=== PATIENT | male | born 1950 | race Caucasian/White ===

== ENCOUNTER 2021-12-20 07:22 | Day surgery (SDC) | payer MEDICARE, OTHER, SELFPAY ==
[2021-12-13 08:43] VITALS: BMI 35.9
[2021-12-20 07:50] VITALS: BP 148/77; PULSE 62; RESP 18; TEMP 36.4; O2SAT 98; BMI 35.9
[2021-12-20 08:03] VITALS: BMI 35.9
[2021-12-20] MEDS: LACTATED RINGERS 1,000 ML 84 ML IV ×2 (08:08→10:51)
--- NOTE | 2021-12-20 09:17 | PM.HP.1 ---
History of Present Illness History of Present Illness Date Patient Seen: 12/20/21 Time Patient Seen: 09:17 Chief complaint: Recurrent RIH Narrative: Skip is here for his laparoscopic recurrent right inguinal hernia repair with mesh. Please see the office note from September for details. Patient History Medical History (Updated 12/13/21 @ 08:48 by Eleanor Velasco RN) BPH (benign prostatic hyperplasia) Former smoker Hernia HLD (hyperlipidemia) HTN (hypertension) Varicose veins of both legs with edema Surgical History (Updated 12/13/21 @ 08:46 by Eleanor Velasco RN) History of knee replacement Hx of right inguinal hernia repair Hx of ventral hernia repair Family & Social History Family History (Updated 10/11/21 @ 09:13 by Lopez Vitale RN) Father Hypertension Diabetes mellitus Cancer Mother Cancer Social History: household members spouse Tobacco & Substance use: Smoking Status Current every day smoker alcohol intake current alcohol intake frequency 0-2 drinks per day Substance Use Type marijuana Meds Home Medications and Allergies Home Medications Medication Instructions Recorded Confirmed Type lisinopril 10 mg tablet 10 mg PO DAILY 10/11/21 12/20/21 History Allergies Allergy/AdvReac Type Severity Reaction Status Date / Time No Known Drug Allergies Allergy Verified 12/20/21 08:01 Exam Vital Signs (past 8 hours): - 12/20/21 07:50 Temperature 97.5 F L Pulse Rate 62 Respiratory Rate 18 Blood Pressure 148/77 H Pulse Oximetry 98 Oxygen Delivery Method Room Air Oxygen Delivery Method Room Air Narrative Exam Narrative: Recurrent right inguinal hernia Assessment & Plan Assessment and plan (1) Recurrent right inguinal hernia: Status: Acute Plan Proceed with a laparoscopic right inguinal hernia repair with mesh. We will repair many left inguinal hernia if we see one. He believes he has a stitch popping through from his epigastric hernia repair. I will see if there is something that can be addressed once were in the operating room. Time Spent With Patient Critical Care time: I spent a total of [] minutes of critical care time on this patient's care today; this time is exclusive of procedural time.
[2021-12-20] MEDS: CEFAZOLIN 2 GM/100 ML PREMIX 100 ML IV (09:35)
--- NOTE | 2021-12-20 10:14 | SUR.OPER ---
Supine on padded OR bed and pink pad positioner, head on pillow and gel donut, arms padded and tucked at sides, legs uncrossed, safety belt at thigh, tape over blanket over lower legs .
[2021-12-20] MEDS: BUPIVACAINE 0.5% (PF) VIAL 30 ML INJ (10:22)
[2021-12-20] MEDS: EPINEPHrine 1 MG/ML 0.15 MG INJ (10:24)
--- NOTE | 2021-12-20 11:25 | PM.OP.1 ---
Operative Date/Time/Diagnoses Date of procedure: 12/20/21 Time of procedure: 11:25 Pre-op diagnosis: Recurrent right inguinal hernia Post-op diagnosis: same Procedure & Clinicians Procedure: Laparoscopic recurrent right inguinal hernia Same procedure as scheduled: Yes Surgeon: Renato Yoo Anesthesia Type: General Operative Notes Procedure in detail: The patient was given preoperative antibiotics. The patient was brought to the operating room, placed on the table in the supine position with the arms tucked and general anesthesia was induced. The abdomen was prepped and draped in the usual fashion. A time-out was performed. A 1 cm curvilinear infraumbilical incision was created and dissection was carried down to the base of the umbilical stalk. The umbilical stalk was grasped with a Keyona clamp to elevate the abdominal wall. The fascia was scored in the midline with cautery. A Peon clamp was used to arana the peritoneum. The Ronny port was placed and the abdomen was insufflated to 15 mmHg. The camera was inserted, there was no evidence of any injury from the entry. There was a indirect right inguinal hernia. 5 mm ports were placed under direct vision in the mid left and mid right abdomen. The patient was positioned in steep Trendelenburg. We created right peritoneal flap. The peritoneum was dissected off the cord structures. David's ligament was exposed. A a large right Bard mesh was brought in and placed over the defect with the medial edge against David's ligament. We then closed the peritoneal flap with a running 3-0 barbed suture. We took one last look around the abdomen and saw no other abnormalities. The suture was removed and accounted for. The 5 mm ports were removed under direct vision. The abdomen was desufflated. The Ronny port was removed. Additional local was injected into the fascia and the infraumbilical fascial incision was closed with 3 interrupted 0 Vicryl sutures. The skin incisions were closed with 4 Monocryl, Steri-Strips and Band-Aids. Post-operative Condition: stable Disposition: PACU
[2021-12-20 11:29] VITALS: BP 148/77; PULSE 62; RESP 18; TEMP 36.4; O2SAT 98
[2021-12-20 11:31] VITALS: BP 155/73; PULSE 71; RESP 20; O2SAT 94
[2021-12-20 11:36] VITALS: BP 150/76; PULSE 68; RESP 18; O2SAT 96
[2021-12-20 11:55] VITALS: BP 151/74; PULSE 68; RESP 20; TEMP 36.7; O2SAT 96
== END 2021-12-20 11:57 | disposition home or self-care (01) ==
PROVIDERS: Family Provider Family Medicine; PCP Nurse Practitioner Family; Referring Provider Surgery; Visit Provider Surgery
PROC: 0YQ54ZZ Repair Right Inguinal Region, Percutaneous Endoscopic Approach (ICD-10-PCS; CPT 49651; principal; 2021-12-20 09:15)
DX: K40.90 Unilateral inguinal hernia, without obstruction or gangrene, not specified as recurrent (principal); F17.210 Nicotine dependence, cigarettes, uncomplicated; I10 Essential (primary) hypertension; E66.9 Obesity, unspecified
CPT/HCPCS: 49651; J0171; J0690; J1100; J2405; J2704; J3010

== ENCOUNTER 2022-07-03 11:56 | Day surgery (SDC) | payer MEDICARE, OTHER, SELFPAY ==
[2022-06-29 10:40] VITALS: BMI 38.1
[2022-07-03 12:22] VITALS: BP 150/81; PULSE 77; RESP 16; TEMP 36.4; O2SAT 99; BMI 38.1
[2022-07-03] MEDS: LACTATED RINGERS 1,000 ML 42 ML IV ×2 (12:33→15:19)
--- NOTE | 2022-07-03 14:36 | PM.PREOP ---
Pre-operative Note COVID-19 COVID-19 status: Not tested Interval Note History & Physical reviewed/Exam performed by Physician: Yes Changes to H&P: No ASA Class (for procedural sedation): II
[2022-07-03] MEDS: CEFAZOLIN 2 GM/100 ML PREMIX 100 ML IV (14:50)
--- NOTE | 2022-07-03 15:08 | SUR.OPER ---
Supine on padded OR bed, head on pillow, arms secured on padded arm boards at <90 degrees abduction, legs uncrossed, safety belt at thigh, tape over blanket over lower legs. Pt positioned per direction and supervision of Dr Yoo.
[2022-07-03] MEDS: BUPIVACAINE 0.25% W/ EPI 30 ML VIAL INJ (15:13)
[2022-07-03 15:59] VITALS: BP 186/82; PULSE 77; RESP 18; TEMP 36.5; O2SAT 92
--- NOTE | 2022-07-03 16:03 | PM.OP.1 ---
Operative Date/Time/Diagnoses Date of procedure: 07/03/22 Time of procedure: 16:03 Pre-op diagnosis: Umbilical hernia Post-op diagnosis: same Procedure & Clinicians Procedure: Open umbilical hernia repair with mesh Same procedure as scheduled: Yes Surgeon: Renato Yoo Anesthesia Type: General Operative Notes Procedure in detail: Ancef was administered. The patient was brought to the operating room, placed on the table in the supine position and general endotracheal anesthesia was induced. The abdomen was prepped and draped in the usual fashion. A time-out was performed. A 6 cm curvilinear incision was made inferior to the umbilicus. The hernia sac was dissected free from the surrounding subcutaneous adipose tissue. The umbilical stalk was divided from the abdominal wall and sac was dissected off the umbilical stalk using a combination of cautery, sharp and blunt dissection. The hernia sac was dissected free from the fascial ring and allowed to drop back down into the abdomen. The fascia was then closed transversely with multiple interrupted 0 Ethibond sutures. The subcutaneous adipose tissue was cleared off of the anterior sheath circumferentially about 2 cm in each direction. A piece of polypropylene mesh was trimmed to fit over the fascial closure and secured with Tisseel. We excised a portion of the umbilical skin which had some scar tissue that some to the patient this was closed in layers using a running 3-0 Vicryl which was then used to tack the umbilical skin to the deep tissue. The skin was closed with multiple interrupted 3-0 Vicryl dermal sutures followed by a running 4 Monocryl subcuticular closure. Steri-Strips were applied and an abdominal binder was applied. EBL: 5 mL Post-operative Condition: stable Disposition: PACU
[2022-07-03 16:04] VITALS: BP 165/88; PULSE 83; RESP 16; O2SAT 93
[2022-07-03 16:11] VITALS: BP 157/91; PULSE 79; RESP 14; TEMP 36.3; O2SAT 93
[2022-07-03 16:16] VITALS: BP 159/82; PULSE 78; RESP 12; TEMP 36.6; O2SAT 97
[2022-07-03 16:35] VITALS: BP 159/81; PULSE 78; RESP 17; TEMP 36.6; O2SAT 96
== END 2022-07-03 16:47 | disposition home or self-care (01) ==
PROVIDERS: Family Provider Family Medicine; PCP Nurse Practitioner Family; Referring Provider Surgery; Visit Provider Surgery
PROC: (CPT 49593; principal; 2022-07-03 13:15)
DX: K42.9 Umbilical hernia without obstruction or gangrene (principal)
CPT/HCPCS: 49593; J0330; J0690; J1100; J2405; J2704; J3010

== ENCOUNTER → 2023-04-12 13:59 | Outpatient (CLI) | payer MEDICARE, OTHER, SELFPAY ==
--- NOTE | 2023-04-12 | DI.CT.S_ITS ---
PROCEDURE: CT LUNG LOW DOSE SCREENING INDICATIONS: FORMER SMOKER, SCREENING TECHNIQUE: Noncontrast 2.0-2.5 mm thick sections acquired from the pulmonary apices to the posterior costophrenic angles. 7 mm thick axial MIP, and 5 mm coronal and sagittal reformats were then acquired. For radiation dose reduction, the following was used: automated exposure control, adjustment of mA and/or kV according to patient size. COMPARISON: None. FINDINGS: Image quality: Diagnostic, given the low radiation dose technique. Lungs and pleura: No suspicious pulmonary nodules or mass lesions. No acute airspace opacities. Mediastinum: Heart size is normal. No pericardial effusion. No mediastinal adenopathy by size criteria. Thoracic aorta and central pulmonary arteries are normal in size. Scattered atheromatous calcifications are present within the aortic arch. Esophagus is normal in caliber. No hiatal hernia. Bones and chest wall: There is diffuse idiopathic skeletal hyperostosis (DISH) of the thoracic spine. No suspicious bony lesions. No vertebral body compression fractures. No axillary or supraclavicular adenopathy by size criteria. Thyroid is unremarkable. Upper Abdomen: Visualized upper abdomen solid organs and bowel loops appear normal in the absence of contrast. IMPRESSION: No suspicious pulmonary nodules. LUNG-RADS 1; continued annual screening, if eligible. Clinically Significant Non-pulmonary Findings: Thoracic spine DISH. Dictated by: Roxana Smiley M.D. on 04/12/2023 at 16:06 Approved by: Roxana Smiley M.D. on 04/12/2023 at 16:09
--- NOTE | 2023-04-12 | DI.US.S_ITS ---
PROCEDURE: US ABD AORTA ANEURYSM SCREEN INDICATIONS: FORMER SMOKER TECHNIQUE: Real time scanning was performed of the aorta and iliac arteries, with image documentation. COMPARISON: None. FINDINGS: Aorta: Proximal aortic diameter measures 2.1 cm. Mid-aorta measures 1.9 cm. Distal aortic diameter is 1 point a cm. Iliac arteries: Right common iliac artery measures 1.4 cm. Left common iliac artery measures 1.4 cm. IMPRESSION: No ectasia or aneurysmal dilatation of the aorta or iliac arteries. Dictated by: Roxana Smiley M.D. on 04/12/2023 at 16:21 Approved by: Roxana Smiley M.D. on 04/12/2023 at 16:22
== END ==
PROVIDERS: Family Provider Family Medicine; PCP Family Medicine; Referring Provider Family Medicine; Visit Provider Family Medicine
DX: Z87.891 Personal history of nicotine dependence (principal); Z13.6 Encounter for screening for cardiovascular disorders; Z12.2 Encounter for screening for malignant neoplasm of respiratory organs
CPT/HCPCS: 71271; 76706

== ENCOUNTER 2023-05-23 08:06 | Emergency (ER) | payer MEDICARE, OTHER, SELFPAY ==
[2023-05-23] VITALS (11 sets, daily range): BP systolic 170–197; BP diastolic 83–94; PULSE 68–79; RESP 18; TEMP 36.6; O2SAT 96–99; BMI 36.5
--- NOTE | 2023-05-23 09:04 | ED_ITS ---
HPI - Male Genitourinary General Chief complaint: Urogenital-Male Stated complaint: UNABLE TO URINATE T-1 Time Seen by Provider: 05/23/23 08:28 Source: patient and family Mode of arrival: Ambulatory History of Present Illness HPI Narrative: Patient 72-year-old male history of hypertension presenting today with retinal vein and difficulty urinating. He reports that he had a very difficult bowel movement yesterday and he felt his hemorrhoids come out. Since then he has had significant pain his rectal area he has been afraid to Valsalva or strain to urinate due to severe pain in rectum. So he has not urined since yesterday. For the last 10 years he has been dribbling taking at least up to 4 minutes to urinate. He has not running any sort of Flomax has no history of BPH. Denies abdominal pain nausea or vomiting. No chest pain palpitations dizziness or lightheadedness. he has decreased his fluid intake due to inability to urinate and Related Data Home Medications Medication Instructions Recorded Confirmed lisinopril 10 mg tablet 10 mg PO DAILY 10/11/21 07/18/22 Previous Rx's Medication Instructions Recorded hydrocortisone 2.5 % topical cream 1 applic HI BID-QID PRN 05/23/23 with perineal applicator hemorrhoids #30 grams lidocaine 5 % topical cream 1 applic topical QID PRN pain #30 05/23/23 grams Allergies Allergy/AdvReac Type Severity Reaction Status Date / Time No Known Drug Allergies Allergy Verified 07/18/22 09:36 Patient History Medical History BPH (benign prostatic hyperplasia) Former smoker Hernia HLD (hyperlipidemia) HTN (hypertension) Varicose veins of both legs with edema Surgical History History of knee replacement Hx of right inguinal hernia repair Hx of ventral hernia repair Family History Father Hypertension Diabetes mellitus Cancer Mother Cancer Social History household members: spouse Smoking Status: Former smoker alcohol intake: current Smoking Status: Former smoker alcohol intake frequency: 0-2 drinks per day Alcohol type: beer Substance Use Type: marijuana Exam Initial Vital Signs Initial Vital Signs: Vital Signs Pulse Rate 78 05/23/23 08:13 Blood Pressure 184/86 H 05/23/23 08:13 Pulse Oximetry 98 05/23/23 08:13 GENERAL: Well-appearing, well-nourished and in no acute distress. CARDIOVASCULAR: peripheral pulses in tact, cap refill <2 sec RESPIRATORY: No respiratory distress, speaks in full sentences without difficulty ABDOMEN: Soft, nontender, no guarding or rebound RECTAL: Large prolapsed hemorrhoids, significant edema, no evidence of thrombosed hemorrhoids EXTREMITIES: Normal range of motion, no clubbing or edema. Neurovascularly intact NEUROLOGICAL: Cranial nerves II through XII grossly intact. Normal gait and speech. SKIN: Warm, dry, no petechiae, no rashes or lesions. Course Orders Ordered: Discontinued Medications Hydrocortisone (Hydrocortisone 2.5% Cream 30 Gm) 1 applic TOP NOW ONE Stop: 05/23/23 09:30 Last Admin: 05/23/23 09:38 Dose: 1 applic Documented By: MS Hydrocortisone (Hydrocortisone 25 Mg Supp) 25 mg HI NOW ONE Stop: 05/23/23 09:46 Last Admin: 05/23/23 09:44 Dose: 25 mg Documented By: MS Lidocaine HCl (Lidocaine 2% (Glydo) 6 Ml Gel) 6 ml TOP NOW ONE Stop: 05/23/23 09:26 Last Admin: 05/23/23 09:38 Dose: 6 ml Documented By: MS Tamsulosin HCl (Tamsulosin 0.4 Mg Capsule) 0.4 mg PO NOW ONE Stop: 05/23/23 09:26 Last Admin: 05/23/23 09:38 Dose: 0.4 mg Documented By: MS Vital Signs Vital signs: Vital Signs - 8 hr 05/23/23 08:13 05/23/23 08:13 05/23/23 08:14 Temperature Pulse Rate 78 78 Respiratory Rate Blood Pressure 184/86 H Pulse Oximetry 98 98 Oxygen Delivery Method 05/23/23 08:14 05/23/23 08:15 05/23/23 08:15 Temperature Pulse Rate 79 Respiratory Rate Blood Pressure 178/83 H 171/84 H Pulse Oximetry 98 Oxygen Delivery Method 05/23/23 08:16 05/23/23 08:16 05/23/23 08:16 Temperature 97.8 F Pulse Rate 78 78 Respiratory Rate 18 Blood Pressure 184/86 H 170/86 H Pulse Oximetry 98 97 Oxygen Delivery Method Room Air 05/23/23 08:17 05/23/23 08:17 05/23/23 08:18 Temperature Pulse Rate 77 Respiratory Rate Blood Pressure 177/87 H 175/84 H Pulse Oximetry 97 Oxygen Delivery Method 05/23/23 08:18 05/23/23 08:30 05/23/23 09:00 Temperature Pulse Rate 74 71 70 Respiratory Rate Blood Pressure Pulse Oximetry 97 97 96 Oxygen Delivery Method MDM - Male Genitourinary Lab Data Labs: Urine Dip Bedside Urine Glucose 100 mg/dl Bedside Urine Bilirubin - Negative Bedside Urine Ketone - Negative Bedside Urine Occult Blood - Negative Bedside Urine pH 6 Bedside Urine Protein - Negative Bedside Urine Urobilinogen - Negative Bedside Urine Nitrite - Negative Bedside Urine Leukocytes - Negative Esterase MDM Narrative Medical decision making narrative: Patient is 72-year-old male who presents today with severe rectal pain and difficulty with urination. His hemorrhoids are white extreme. No evidence of a thrombosed hemorrhoid. Sugar was placed initially to kind of help with some of the swelling did help some. He was given lidocaine gel and hydrocortisone as well. He eventually urinated. No evidence of UTI. He has feeling a bit better. Encourage bath and supportive care. Also encouraged follow up General surgery. I spoke with the son on the phone who was concerned about cauda equina. Apparently patient has had back pain with radiation down his legs and thought he had a postvoid residual of 300. However this is not the case patient has not be en complaining of back pain or leg pain. He was actually able to void here in the ED he urinated about 200 cc. I do think he was having pain in his rectum due to severe hemorrhoids and was not able to urinate. He did have relief with the lidocaine and hydrocortisone. Discharge Plan Departure Patient Disposition: Home Clinical Impression: External hemorrhoids Instructions: Hemorrhoid Banding, DI for Hemorrhoids Activity Restrictions/Additional Instructions: *You have been diagnosed with external hemorrhoids *What to do: At this time recommend Sitz baths try the hydrocortisone and lidocaine cream as directed I do also recommend you have your prostate checked you likely have BPH. Do not get constipated. Be sure to take a stool softener daily *Continue to take medications as directed Hydrocortisone cream up to 4 times a day Lidocaine ointment up to 4 times a day You may mix these together and applied *Follow up with your primary care provider in 2-3 days or call [phone] *Return to ER if you should have increasing pain or any new, worsening or concerning symptoms Prescriptions: New hydrocortisone 2.5 % cream with perineal applicator 1 applic HI BID-QID PRN (Reason: hemorrhoids) Qty: 30 1RF lidocaine 5 % cream 1 applic topical QID PRN (Reason: pain) Qty: 30 0RF No Action lisinopril 10 mg tablet 10 mg PO DAILY Referrals: [facility] [Provider Group] Kristina Herrera MD [Primary Care Provider] - Stand Alone Forms: Patient Portal/API
[2023-05-23] MEDS: HYDROCORTISONE 2.5% CREAM 30 GM 1 APPLIC TOP (09:38)
[2023-05-23] MEDS: TAMSULOSIN 0.4 MG CAPSULE PO (09:38)
[2023-05-23] MEDS: LIDOCAINE 2% (GLYDO) 6 ML GEL TOP (09:38)
[2023-05-23] MEDS: HYDROCORTISONE 25 MG SUPP PR (09:44)
== END 2023-05-23 11:07 | disposition home or self-care (01) ==
PROVIDERS: Emergency Provider Emergency Medicine; Family Provider Family Medicine; PCP Family Medicine
DX: K64.4 Residual hemorrhoidal skin tags (principal)
CPT/HCPCS: 51798; 81003; 99283

== ENCOUNTER 2023-07-25 12:02 | Day surgery (SDC) | payer MEDICARE, OTHER, SELFPAY ==
--- NOTE | 2023-07-25 | PATH_ITS ---
[facility] Accession Number: [id number] No. of containers..04 Tissue . 01 Material submitted: . PART A: colon - TRANSVERSE COLON POLYPS X5 PART B: colon - ASCENDING COLON POLYP PART C: colon - DESCENDING COLON POLYPS X4 PART D: colon - SIGMOID COLON POLYPS X2 . 01 Diagnosis: A. Colon, transverse, polyps x5, biopsies: Tubular adenomas in four colonic fragments. -- B. Colon, ascending, polyp biopsy: Tubular adenoma. -- C. Colon, descending, polyps x 4, biopsies: Tubular adenomas in three colonic fragments. -- D. Colon, sigmoid, polyps x2 biopsies: Tubular adenomas in six colonic fragments. TXN 07/29/2023 1322 Local . 01 Electronically signed: . Janine Harris MD, Pathologist NPI- [id number] . 01 Gross description: . A. Received in formalin, labeled with two identifiers and transverse colon polyps, are multiple vasquez soft tissue ranging from 0.3 x 0.2 x 0.1 cm to 1.3 x 0.5 x 0.2 cm. The two largest fragments are differentially inked and bisected. The specimen is submitted entirely in cassettes A1-A2. B. Received in formalin, labeled with two identifiers and ascending polyp, are two vasquez soft tissue fragments measuring 0.2 x 0.1 x 0.1 cm to 0.8 x 0.7 x 0.5 cm. The largest fragment is bisected. The specimen is submitted entirely in cassettes B1-B2. C. Received in formalin, labeled with two identifiers and descending colon polyps, are four vasquez soft tissue fragments ranging in size from 0.3-0.5 cm in greatest dimension. Submitted entirely in cassette C1. D. Received in formalin, labeled with two identifiers and sigmoid polyps, are multiple vasquez soft tissue fragments aggregating to 1.5 x 0.9 x 0.1 cm. Filtered and submitted entirely in cassette D1. ([id number]) /FRR 07/27/2023 1819 Local . 01 Pathologist provided ICD-10: Z12.11 . 01 CPT . 722072, 456795, 780063, 190629 Specimen Comment: A courtesy copy of this report has been sent to [phone] Performed at: 01 [facility] [address] [place] [address] [address] [facility] [place], [place], [place] [id number] MD Jean-Paul Jin MD Phone: [phone]
[2023-07-25 12:21] VITALS: BP 162/81; PULSE 63; RESP 18; TEMP 36.4; O2SAT 99
[2023-07-25] MEDS: LACTATED RINGERS 1,000 ML 42 ML IV (12:29)
--- NOTE | 2023-07-25 13:08 | P.HP_ITS ---
History of Present Illness History of Present Illness Date Patient Seen: 07/25/23 Time Patient Seen: 13:08 Chief complaint: Screening Colonoscopy Narrative: Nabil is a 73-year-old man who is here for colonoscopy. He has had a colonoscopy in over 10 years. Did have flare-up of hemorrhoids back in April but it has improved dramatically after increasing dietary fiber. [facility] Medical History Former smoker BPH (benign prostatic hyperplasia) Varicose veins of both legs with edema HLD (hyperlipidemia) HTN (hypertension) Hernia Surgical History Hx of ventral hernia repair Hx of right inguinal hernia repair History of knee replacement Family History Father Hypertension Diabetes mellitus Cancer Mother Cancer Social History household members: spouse Smoking Status: Former smoker alcohol intake: current Meds Home Medications and Allergies Home Medications Medication Instructions Recorded Confirmed Type hydrocortisone 2.5 % topical cream 1 applic [place] BID-QID PRN 05/23/23 05/29/23 Rx with perineal applicator hemorrhoids #30 grams lidocaine 5 % topical cream 1 applic topical QID PRN pain #30 05/23/23 05/29/23 Rx grams peg 3350-electrolytes 236 240 ml PO Q10M #4,000 mL 05/30/23 Rx gram-22.74 gram-6.74 gram-5.86 gram solution (Golytely) losartan 50 mg tablet 50 mg PO BID 07/25/23 07/25/23 History Allergies Allergy/AdvReac Type Severity Reaction Status Date / Time No Known Drug Allergies Allergy Verified 07/25/23 12:20 Exam Vital Signs (past 8 hours): - 07/25/23 12:21 Temperature 97.5 F L Pulse Rate 63 Respiratory Rate 18 Blood Pressure 162/81 H Pulse Oximetry 99 Oxygen Delivery Method Room Air Oxygen Delivery Method Room Air Const General: No acute distress Resp Effort & Inspection: normal respiratory effort Assessment & Plan Assessment and plan (1) Colon cancer screening: Status: Acute Plan We discussed the risks and benefits of colonoscopy for colon cancer screening and he would like to proceed.
--- NOTE | 2023-07-25 14:16 | PM.OP.COLON ---
Operative Date/Time/Diagnoses Date of procedure: 07/25/23 Time of procedure: 14:16 Pre-op diagnosis: Colon cancer screening Post-op diagnosis: same Procedure & Clinicians Study performed: Colonoscopy Same procedure as scheduled: Yes Surgeon: Renato Yoo Procedure Notes Procedure in detail: Surgeon: Reanto Yoo MD Anesthesia: Lois Lopez CRNA Procedure: The patient was brought to the endoscopy suite, placed in left lateral decubitus position. The patient was connected to monitoring devices. A time-out was performed. Sedation was administered. Once the patient was adequately sedated, a digital rectal exam was performed and was normal. The scope was then inserted and advanced to the cecum where the appendiceal orifice was identified and photographed. The scope was then slowly withdrawn over greater than 6 minutes. The mucosa was thoroughly inspected. There was a 1.2 cm polyp in the ascending colon removed with a cold snare. There were 5 polyps in the transverse colon removed with cold snare and sent together. At least 1 of these was greater than 1 cm. There were 4 polyps in the descending colon all less than 1 cm and removed with cold snare and sent together. There were 2 polyps in the sigmoid colon less than 1 cm and removed with cold snare and sent together. The scope was retroflexed in the rectum. Internal hemorrhoids were seen. The scope was straightened and removed. The patient was awakened and brought to recovery. Scope withdrawal time: 34 minutes Sedation time: 58 minutes EBL: 10 mL Findings: At least 2 polyps larger than 1 cm and an additional 10 polyps under 1 centimeter Post-procedure Disposition: PACU
[2023-07-25 14:19] VITALS: BP 137/75; PULSE 94; RESP 21; TEMP 36.3; O2SAT 94
[2023-07-25 14:25] VITALS: BP 137/86; PULSE 86; RESP 11; O2SAT 95
[2023-07-25 14:28] VITALS: BP 133/91; PULSE 74; RESP 13; TEMP 36.1; O2SAT 94
== END 2023-07-25 14:50 | disposition home or self-care (01) ==
PROVIDERS: Family Provider Family Medicine; PCP Family Medicine; Referring Provider Surgery; Visit Provider Surgery
PROC: 0DJD8ZZ Inspection of Lower Intestinal Tract, Via Natural or Artificial Opening Endoscopic (ICD-10-PCS; CPT 45378; principal; 2023-07-25 13:15)
DX: Z12.11 Encounter for screening for malignant neoplasm of colon (principal); K64.8 Other hemorrhoids; D12.3 Benign neoplasm of transverse colon; D12.2 Benign neoplasm of ascending colon; D12.4 Benign neoplasm of descending colon; D12.5 Benign neoplasm of sigmoid colon
CPT/HCPCS: 45385; J2704

== ENCOUNTER → 2024-05-23 09:40 | Outpatient (CLI) | payer MEDICARE, OTHER, SELFPAY ==
--- NOTE | 2024-05-23 | DI.MRI.S_ITS ---
PROCEDURE: MR CERVICAL SPINE WO CON INDICATIONS: CERVICAL SPONDYLOSIS TECHNIQUE: Noncontrast sagittal T1 spin echo and T2 fast spin echo, sagittal STIR, foraminal oblique sagittal T2 fast spin echo, and axial gradient echo or T2 fast spin echo through the cervical spine. COMPARISON: None. FINDINGS: Image quality: Excellent. Alignment and Curvature: There is straightening of normal cervical lordosis. Bone Marrow: There is no marrow edema. No acute fracture or dislocation. Spinal Cord: Visualized spinal cord has normal size and signal. No cerebellar tonsillar herniation. Paraspinous Soft Tissues: No paravertebral masses. Prevertebral soft tissues are normal in thickness. C2-C3: Disc desiccation. Broad-based disc bulge and bilateral uncovertebral hypertrophic changes are seen with [id number] right-sided neural foraminal narrowing. No significant central canal stenosis. C3-C4: There is disc desiccation and loss of disc height. Broad-based disc bulge and bilateral uncovertebral hypertrophic changes causing [id number] central canal stenosis and bilateral neural foraminal narrowing. C4-C5: Partial bony fusion is seen at C4-5 level . There is dorsal disc osteophyte complex formation and bilateral uncovertebral hypertrophic changes causing mild central canal stenosis, moderate to severe left-sided neural foraminal narrowing and moderate right-sided neural foraminal narrowing. C5-C6: Disc desiccation and loss of disc height. Broad-based disc bulge and bilateral uncovertebral hypertrophic changes. There is also central to left-sided disc herniation. There is [id number] central canal stenosis, moderate to severe left-sided neural foraminal narrowing and moderate right-sided neural foraminal narrowing. Bulging disc likely contacting bilateral C6 nerve roots. C6-C7: Loss of disc height and disc desiccation. Broad-based, more left-sided disc bulge and left lateral disc herniation with bilateral uncovertebral hypertrophic changes causing mild central canal stenosis, severe left-sided neural foraminal narrowing and moderate right-sided neural foraminal narrowing. Bulging disc likely contacting bilateral C7 nerve roots. C7-T1: Normal appearance. IMPRESSION: 1. Spondylitic changes throughout cervical spine causing various degrees of central canal stenosis and bilateral neural foraminal narrowing as described above. 2. Partial bony fusion at C4-5 level. No gross marrow edema. No acute fracture or dislocation. 3. No abnormal cervical spinal cord signal. Dictated by: Erlin Walker M.D. on 05/25/2024 at 12:37 Approved by: Erlin Walker M.D. on 05/25/2024 at 12:41
== END ==
PROVIDERS: PCP Family Medicine; Referring Provider Physician Assistant; Visit Provider Physician Assistant
DX: M47.812 Spondylosis without myelopathy or radiculopathy, cervical region (principal); M47.816 Spondylosis without myelopathy or radiculopathy, lumbar region; G89.29 Other chronic pain; M25.562 Pain in left knee; M48.02 Spinal stenosis, cervical region; M43.26 Fusion of spine, lumbar region
CPT/HCPCS: 72141